=== PATIENT | male | born 1955 | race Caucasian/White ===

== ENCOUNTER 2025-02-11 09:03 | Outpatient (CLI) | payer MEDICARE | END 2025-02-11 09:04 | disposition home or self-care (01) | LOC: CSHCP 09:03 | PROVIDERS: ATTEND Internal Medicine Critical Care Medicine | DX: R06.00 Dyspnea, unspecified (principal); J44.9 Chronic obstructive pulmonary disease, unspecified | CPT/HCPCS: 94060; 94726; 94729; 94760 ==